=== PATIENT | male | born 1950 | race Caucasian/White ===

== ENCOUNTER 2017-10-25 12:15 | Inpatient (IN) ==
--- NOTE | 2017-10-25 12:59 | Emergency Department Note ---
General Adult HPI - General Chief complaint: Cold/Flu Symptoms Stated complaint: cough, congestion ill 2 months Time Seen by Provider: 10/25/17 12:30 Source: patient Mode of arrival: ambulatory Limitations: no limitations - History of Present Illness HPI Narrative: 67-year-old male seen on 10/03/17 for a small infiltrate in the right lower lobe. Was treated with Levaquin. He states since that time he has had diarrhea and yesterday he became dizzy while using the bathroom in the middle the night. And he did fall. He has some superficial abrasions on his right arm swelling in his nasal bridge. He states he does not want to have this evaluated he states there is no pain is mostly concerned that he does continue to have cough with some yellowish greenish sputum and the diarrhea which is been daily for the past 3 weeks. Once a day. There is been no blood in the stools. She is afebrile - Related Data Home Medications Medication Instructions Recorded Confirmed Atenolol [Tenormin] 10 mg PO DAILY 11/27/15 10/03/17 Losartan Potassium [Cozaar] 100 mg PO DAILY 11/27/15 10/03/17 Spironolactone [Aldactone] 25 mg PO DAILY 11/27/15 10/03/17 Previous Rx's Medication Instructions Recorded Albuterol Sulfate [Proair Hfa] 1 - 2 puff IH Q4-6HP PRN #1 10/03/17 [email or web address] Allergies Allergy/AdvReac Type Severity Reaction Status Date / Time Penicillins Allergy Intermediate Anaphylaxis Verified 10/03/17 09:15 Streptomycin Allergy Intermediate Unknown Verified 10/03/17 09:15 Review of Systems All systems ED: reviewed and negative except as stated. ENT ED: Reports: other (Has contusion on bridge of nose patient does not want this evaluated) Respiratory: Reports: cough, phlegm (Yellowish greenish). Denies: shortness of breath, wheezes Gastrointestinal: Reports: as per HPI, diarrhea. Denies: abdominal pain, nausea , vomiting, constipation Genitourinary: Denies: dysuria, frequency, urgency Past Medical History - Past Medical History Medical history: Reports: hypertension Surgical history ED: Reports: non-contributory Family history: Reports: non-contributory - Social History smoking status: Never smoker Alcohol use: Reports: None Drug use: Reports: none Physical Exam Limitations: no limitations General appearance: alert Head: atraumatic, normocephalic Eye: Present: normal appearance, PERRL ENT: normal exam, normal oropharynx, mucous membranes moist Neck: Present: normal inspection, full ROM. Absent: trachea midline Chest: Present: normal inspection. Absent: symmetric chest wall rise, tenderness Respiratory: Present: normal lung sounds bilaterally. Absent: respiratory distress, wheezes Cardiovascular: Present: regular rate, normal rhythm. Absent: bradycardia, tachycardia Abdominal: Present: soft. Absent: distention, tenderness Extremities: Present: normal inspection, other (Contusion right forearm from falling denies any pain does not want any workup on his lesions) Back: Present: normal inspection, full ROM. Absent: tenderness, CVA tenderness (R), CVA tenderness (L) Course Vital Signs Temperature 98.0 F 10/25/17 12:16 Pulse Rate 114 H 10/25/17 12:16 Respiratory Rate 20 10/25/17 12:16 Blood Pressure 145/84 10/25/17 12:16 Pulse Oximetry (%) 98 10/25/17 12:16 Temperature 98.8 F 10/25/17 15:00 Pulse Rate 97 H 10/25/17 15:00 Respiratory Rate 22 10/25/17 15:00 Blood Pressure 138/71 10/25/17 15:00 Pulse Oximetry (%) 99 10/25/17 15:00 Medical Decision Making - [facility] Narrative Medical decision making narrative: Lactic acid is 1.7. The white count is elevated at 12,600 with 3 bands 83 segs. Chest x-ray shows increasing infiltrate on the right. He had an outpatient trial of Levaquin which apparently has failed and patient to be admitted to hospice has been contacted and will evaluate the patient for admission. - Lab Data Result diagrams: 10/25/17 13:13 10/25/17 13:13 Lab Results 10/25/17 10/25/17 10/25/17 Range/Units 13:13 13:13 14:18 WBC 12.6 H (4.5-11.0) K/mcL RBC 3.84 L (4.50-5.90) M/mcL Hgb 13.2 L (13.5-16.5) g/dL Hct 37.8 L (41.0-55.0) % MCV 98.4 (80.0-100.0) fL MCH 34.4 H (26.0-34.0) pg MCHC 35.0 (31.0-36.0) g/dL RDW 12.1 (11.5-14.5) % Plt Count 214 (140-440) K/mcL MPV 8.6 (7.4-10.4) fL Total Counted 100 Seg Neutrophils % 83 H (38-78) % Band Neutrophils % 3 (0-10) % Lymphocytes % 6 L (15-49) % Monocytes % (Manual) 8 (1-12) % Platelet Estimate Normal (NORMAL) RBC Morphology Normal (NORMAL) VBG Lactic Acid 1.7 (0.5-2.2) mmol/L Sodium 118 L* (133-145) mmol/L Potassium 4.1 (3.3-5.1) mmol/L Chloride 78 L (96-108) mmol/L Carbon Dioxide 18 L (22-30) mmol/L Anion Gap 22.0 H (8-16) BUN 12 (8-23) mg/dl Creatinine 1.0 (0.7-1.2) mg/dl GFR Calculation 77 Glucose 146 H (70-105) mg/dL Calcium 8.3 L (8.6-10.4) mg/dl Total Bilirubin 0.6 (0.0-1.0) mg/dL AST 44 H (0-37) U/l ALT 26 (0-40) U/l Alkaline Phosphatase 59 (39-117) U/L Total Protein 6.9 (5.9-8.4) gm/dL Albumin 3.9 (3.2-5.2) gm/dL Globulin 3.0 (2.2-3.7) gm/dL Albumin/Globulin Ratio 1.3 (1.0-2.3) Disposition Pt seen by ORAL SURGERY ASSISTANT/PA only: No Clinical Impression: Pneumonia involving right lung Qualifiers: Pneumonia type: due to unspecified organism Disposition: Xfer As Inpt ([facility]) Condition: Fair Referrals: Beulah Shankar [Primary Care Provider] -
[2017-10-25] MEDS ORDERED: 0.9 % SODIUM CHLORIDE 1,000 ML IV ONE (13:08)
[2017-10-25 13:38] LABS: Mean Cell Volume 98.4 fL (80.0-100.0); Mean Corpuscular Hemoglobin 34.4 pg (26.0-34.0); Platelet Count 214 K/mcL (140-440); RBC 3.84 M/mcL (4.50-5.90); Red Cell Distribution Width 12.1 % (11.5-14.5)
[2017-10-25 13:57] LABS: ALT/SGPT 26 U/l (0-40); Albumin 3.9 gm/dL (3.2-5.2); Albumin/Globulin Ratio 1.3 (1.0-2.3); Alkaline Phosphatase 59 U/L (39-117); Blood Urea Nitrogen 12 mg/dl (8-23)
[2017-10-25 14:10] LABS: Band Neutrophils % 3 % (0-10); Lymphocytes % 6 % (15-49); Monocytes % (Manual) 8 % (1-12); Platelet Estimate NORMAL (NORMAL); RBC Morphology NORMAL (NORMAL); Segmented Neutrophils % 83 % (38-78)
--- NOTE | 2017-10-25 14:14 | XRay Report ---
CLINICAL INFORMATION: Cough - follow right lower lobe pneumonia COMPARISON: 10/03/2017 FINDINGS: The heart is mildly enlarged. Mediastinum is unremarkable. Pulmonary vessels are now mildly distended compared with the prior and a 2010 baseline chest x-ray. Right lower lobe infiltrate has worsened now moderate sized. There is mild airspace disease developing in the left mid/lower lung either edema or a second infiltrate. Small bilateral pleural effusions noted IMPRESSION: 1. Mild CHF or volume overload - new 2. Moderate right lower lobe infiltrate - worsening 3. Small vague airspace disease left mid/ lower lung is most likely a secondary infiltrate. Consider aspiration Interpreted and Authenticated by: Viktor Lofton 10/25/17
[2017-10-25] MEDS ORDERED: AZITHROMYCIN 500 MG in DEXTROSE 5% IN WATER 250 ML IV ONE (14:21)
[2017-10-25] MEDS ORDERED: cefTRIAXone 1 GM VIAL IV SCH (14:30)
[2017-10-25] MEDS ORDERED: ACETAMINOPHEN 325 MG TABLET PO PRN ×2 (16:21→18:04)
[2017-10-25] MEDS ORDERED: cefTRIAXone 2 GM in DEXTROSE 5% IN WATER 50 ML IV SCH (16:30)
[2017-10-25] MEDS ORDERED: 0.9 % SODIUM CHLORIDE 1,000 ML BAG IV SCH (16:45)
[2017-10-25] MEDS ORDERED: 0.9 % SODIUM CHLORIDE 1,000 ML IV SCH (17:00)
[2017-10-25] MEDS ORDERED: ALBUTEROL SULFATE 1 PUFF INHALER IH PRN (18:04)
[2017-10-25] MEDS ORDERED: 0.45 % SODIUM CHLORIDE 1,000 ML IV SCH (18:04)
[2017-10-25 18:53] LABS: Blood Urea Nitrogen 11 mg/dl (8-23)
[2017-10-25] MEDS: 0.9 % SODIUM CHLORIDE 1,000 ML IV SCH (19:18)
[2017-10-25] MEDS ORDERED: guaiFENesin/CODEINE 10 ML UDC PO PRN (20:35)
[2017-10-25] MEDS: 0.9 % SODIUM CHLORIDE 10 ML SYRINGE IV SCH (21:10)
[2017-10-25] MEDS: LOSARTAN 50 MG TABLET PO SCH (21:27)
--- NOTE | 2017-10-25 21:37 | Internal Med History&Physical ---
Medical - H&P: [facility] Patient information: Note initiated : 10/25/17 at 9:23 pm Service Date, if different from initiated Date: [] Patient: Seun Mesa 67 y/o M presented on 10/25/17 with chief complaint of cough, congestion and feeling ill for 2 months History of present illness: Mr. Mesa is a 67 year old M, with known history of HTN, was in good health up to two months ago. He developed flu like symptoms 2 months ago and has been feeling ill since then. He admits to a cough, mildly productive of mucoid light greenish secretions, subjective fever, poor appetite and lightheadedness. He was seen in the ED on 10/03, diagnosed with a small RLL pneumonia and started on Levofloxacin for ten days. He finished the course as instructed and symptoms have initially improved, but for last few days have developed more coughing, keeping him awake at night. Yesterday, he fell of the commode as he fell asleep in sitting position. He hit his face against the floor and sustained a laceration. He has had some diarrhea last night, not today. Patient hasn't had the flu vaccine this year. His has had flu-like symptoms too, but in milder form. - Constitutional Constitutional: Present: anorexia, fatigue, malaise, weight loss - Cardiovascular Cardiovascular: Absent: chest pain, edema, leg edema - Respiratory Respiratory: Present: cough, dyspnea, chest congestion - Gastrointestinal Gastrointestinal: Present: diarrhea. Absent: abdominal pain - Genitourinary Genitourinary: Absent: difficulty urinating, urinary frequency, urinary hesitancy Medical - H&P: H Medical history: HTN Surgical history: Knee surgery at age 16 Functional capacity: independent ambulation Smoking status: Never smoker Drug use: none Medical - H&P: Meds Home Medications Medication Instructions Recorded Confirmed Type Atenolol [Tenormin] 10 mg PO 0 11/27/15 10/25/17 History Losartan Potassium [Cozaar] 100 mg PO 169911/27/15 10/25/17 History Spironolactone [Aldactone] 25 mg PO 0 11/27/15 10/25/17 History Albuterol Sulfate [Proair Hfa] 1 - 2 puff IH Q4-6HP PRN #1 10/03/17 10/25/17 Rx [email or web address] Allergies Allergy/AdvReac Type Severity Reaction Status Date / Time Penicillins Allergy Severe Anaphylaxis Verified 10/25/17 16:52 Streptomycin Allergy Unknown Unknown Verified 10/25/17 17:01 Medical - H&P: Exam - Constitutional Vitals: Temp Pulse Resp BP Pulse Ox 99.0 F H 95 H 12 132/75 99 10/25/17 18:55 10/25/17 18:55 10/25/17 18:55 10/25/17 18:55 10/25/17 18:55 General appearance: average body habitus - Head Head exam: Present: normal inspection - Expanded Head Exam Head exam: Present: abrasion (nasal bridge) - Eye Eye exam: Present: EOMI, PERRL - Neck Neck exam: Present: normal inspection - Respiratory Respiratory exam: Present: rhonchi. Absent: accessory muscle use - Cardiovascular Cardiovascular exam: Present: normal rate and rhythm - GI/Abdominal GI/Abdominal exam: Present: normal bowel sounds, soft - Rectal Rectal exam: Present: deferred - Extremities Exam Extremities exam: Present: normal inspection - Neurological Exam Neurological exam: Present: CN II-XII intact Medical - H&P: Reslt - Labs CBC & Chem 7: 10/25/17 13:13 10/25/17 17:05 Labs: Short CBC 10/25/17 Range/Units 13:13 WBC 12.6 H (4.5-11.0) K/mcL Hgb 13.2 L (13.5-16.5) g/dL Hct 37.8 L (41.0-55.0) % Plt Count 214 (140-440) K/mcL BMP 10/25/17 10/25/17 13:13 17:05 Sodium 118 L* 119 L* Potassium 4.1 4.0 Chloride 78 L 82 L Carbon Dioxide 18 L 19 L BUN 12 11 Creatinine 1.0 0.8 Glucose 146 H 116 H Calcium 8.3 L 7.8 L Liver Function 10/25/17 Range/Units 13:13 Total Bilirubin 0.6 (0.0-1.0) mg/dL AST 44 H (0-37) U/l ALT 26 (0-40) U/l Alkaline Phosphatase 59 (39-117) U/L Albumin 3.9 (3.2-5.2) gm/dL - ABG Interpretation Interpretation: respiratory alkalosis, metabolic acidosis - Imaging and Cardiology Chest x-ray Additional comments: Procedure(s): XR chest 2V Accession Number(s): [id number] CLINICAL INFORMATION: Cough - follow right lower lobe pneumonia COMPARISON: 10/03/2017 FINDINGS: The heart is mildly enlarged. Mediastinum is unremarkable. Pulmonary vessels are now mildly distended compared with the prior and a 2009 baseline chest x-ray. Right lower lobe infiltrate has worsened now moderate sized. There is mild airspace disease developing in the left mid/lower lung either edema or a second infiltrate. Small bilateral pleural effusions noted IMPRESSION: 1. Mild CHF or volume overload - new 2. Moderate right lower lobe infiltrate - worsening 3. Small vague airspace disease left mid/ lower lung is most likely a secondary infiltrate. Consider aspiration Medical - H&P: A/P - Narrative A/P Narrative: 67-year-old male, presented 10/25 with the following problems: + RLL pneumonia s/p treatment with Levofloxacin x 10 days DD viral pneumonia, MRSA + CHF on CXR. 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 Medical - H&P: Qual - VTE Deep Vein Thrombosis/Pulmonary Embolism Present on Admission: No
[2017-10-25] MEDS ORDERED: 0.9 % SODIUM CHLORIDE 10 ML SYRINGE IV SCH (22:00)
[2017-10-25 22:58] LABS: Albumin 3.3 gm/dL (3.2-5.2); Blood Urea Nitrogen 10 mg/dl (8-23)
[2017-10-26] MEDS: 0.9 % SODIUM CHLORIDE 1,000 ML IV SCH ×2 (02:24→10:09)
[2017-10-26] MEDS: 0.9 % SODIUM CHLORIDE 10 ML SYRINGE IV SCH ×4 (05:04→23:25)
[2017-10-26] MEDS ORDERED: AZITHROMYCIN 250 MG TABLET PO SCH (09:00)
[2017-10-26] MEDS ORDERED: cefTRIAXone 2 GM VIAL IV SCH (09:00)
[2017-10-26] MEDS ORDERED: ENOXAPARIN 40 MG/0.4 ML SYRINGE SQ SCH (09:00)
[2017-10-26] MEDS: ENOXAPARIN 40 MG/0.4 ML SYRINGE SQ SCH (09:37)
[2017-10-26] MEDS: AZITHROMYCIN 250 MG TABLET PO SCH (09:37)
[2017-10-26] MEDS: cefTRIAXone 2 GM VIAL IV SCH (10:07)
--- NOTE | 2017-10-26 11:37 | Internal Med History&Physical ---
Medical - H&P: HPI Patient information: Note initiated : 10/26/17 at 11:33 am Service Date, if different from initiated Date: [] Patient: Seun Mesa 67 y/o M admitted on 10/25/17 for Cough, Congestion Ill x 2 months/Pneumonia. Chief complaint: cough and general malaise History of present illness: Mr. Mesa is a 67 year old M, with known history of HTN, was in good health up to two months ago. He developed flu like symptoms 2 months ago and has been feeling ill since then. He admits to a cough, mildly productive of mucoid light greenish secretions, subjective fever, poor appetite and lightheadedness. He was seen in the ED on 10/03, diagnosed with a small RLL pneumonia and started on Levofloxacin for ten days. He finished the course as instructed and symptoms have initially improved, but for last few days have developed more coughing, keeping him awake at night. Yesterday, he fell of the commode as he fell asleep in sitting position. He hit his face against the floor and sustained a laceration. He has had some diarrhea the night prior. 10/25 Admitted to medical floor with: LLL pneumonia Possible mild CHF (on CXR) Hyponatremia of 118 HTN, well controlled Was empirically started on Ceftriaxone and Azithromycin Gentle NS hydration Aldactone home med on hold Na up to 120 last night 10/26. Feeling better. Sputum : few gram pos cocci ECHO done. Plan: D/c IV, start PT - Constitutional Additional comments: Still easily fatigued, but feeling better. Cough also improved Medical - H&P: Meds Home Medications Medication Instructions Recorded Confirmed Type Atenolol [Tenormin] 10 mg PO 1700 11/27/15 10/25/17 History Losartan Potassium [Cozaar] 100 mg PO 1700 11/27/15 10/25/17 History Spironolactone [Aldactone] 25 mg PO 1700 11/27/15 10/25/17 History Albuterol Sulfate [Proair Hfa] 1 - 2 puff IH Q4-6HP PRN #1 10/03/17 10/25/17 Rx [email or web address] Allergies Allergy/AdvReac Type Severity Reaction Status Date / Time Penicillins Allergy Severe Anaphylaxis Verified 10/25/17 16:52 Streptomycin Allergy Unknown Unknown Verified 10/25/17 17:01 Medical - H&P: Exam - Constitutional Vitals: Temp Pulse Resp BP Pulse Ox 98.1 F 86 16 101/65 100 10/26/17 07:24 10/26/17 04:00 10/26/17 07:24 10/26/17 07:24 10/26/17 07:24 General appearance: average body habitus - Head Head exam: Present: normal inspection - Neck Neck exam: Present: normal inspection - Respiratory Respiratory exam: Present: rhonchi. Absent: accessory muscle use - Cardiovascular Cardiovascular exam: Present: normal rate and rhythm - GI/Abdominal GI/Abdominal exam: Present: normal bowel sounds, soft - Rectal Rectal exam: Present: deferred - Extremities Exam Extremities exam: Present: normal inspection. Absent: pedal edema Medical - H&P: Reslt - Labs CBC & Chem 7: 10/25/17 13:13 10/25/17 21:57 Labs: Short CBC 10/25/17 Range/Units 13:13 WBC 12.6 H (4.5-11.0) K/mcL Hgb 13.2 L (13.5-16.5) g/dL Hct 37.8 L (41.0-55.0) % Plt Count 214 (140-440) K/mcL BMP 10/25/17 10/25/17 10/25/17 13:13 17:05 21:57 Sodium 118 L* 119 L* 120 L Potassium 4.1 4.0 3.7 Chloride 78 L 82 L 83 L Carbon Dioxide 18 L 19 L 17 L BUN 12 11 10 Creatinine 1.0 0.8 0.7 Glucose 146 H 116 H 104 Calcium 8.3 L 7.8 L 7.5 L Liver Function 10/25/17 10/25/17 Range/Units 13:13 21:57 Total Bilirubin 0.6 (0.0-1.0) mg/dL AST 44 H (0-37) U/l ALT 26 (0-40) U/l Alkaline Phosphatase 59 (39-117) U/L Albumin 3.9 3.3 (3.2-5.2) gm/dL Medical - H&P: A/P - Narrative A/P Narrative: 67-year-old male, presented 10/25 with the following problems: + RLL pneumonia s/p treatment with Levofloxacin x 10 days DD viral pneumonia, MRSA On Ceftriaxone and Azithromycin. Started 10/25 Sputum gram stain: gram pos cocci + CHF on CXR. Check echocardiogram to eval for diastolic vs systolic dysfunc + Hyponatremia Discontinue aldactone Gentle IV hydration with NS 10/26: d/c IVF + HTN Continue home meds, except for Aldactone DVT prophylaxis: Lovenox Code status: Full Medical - H&P: Qual - VTE Deep Vein Thrombosis/Pulmonary Embolism Present on Admission: No
[2017-10-26] MEDS ORDERED: cefTRIAXone 1 GM VIAL IV SCH (14:30)
[2017-10-26] MEDS ORDERED: ATENOLOL 50 MG TABLET PO SCH (17:00)
[2017-10-26] MEDS: LOSARTAN 50 MG TABLET PO SCH (17:00)
[2017-10-26] MEDS ORDERED: IPRATROPIUM/ALBUTEROL SULFATE 1 PUFF INHALER INH PRN (19:16)
[2017-10-26] MEDS ORDERED: IPRATROPIUM/ALBUTEROL 3 ML AMPUL.NEB NEB PRN (19:35)
[2017-10-27] MEDS: 0.9 % SODIUM CHLORIDE 10 ML SYRINGE IV SCH (05:36)
[2017-10-27 06:19] LABS: Basophils # (Auto) 0 K/mcL (0.0-0.3); Basophils % (Auto) 0.3 % (0.0-2.0); Eosinophils # (Auto) 0 K/mcL (0.0-0.7); Eosinophils % (Auto) 1.1 % (0.0-7.0); Granulocytes % (Auto) 70.3 % (38.0-78.0); Lymphocytes # (Auto) 0.7 K/mcL (1.5-4.8); Lymphocytes % (Auto) 14.2 % (15.5-49.0); Mean Cell Volume 99.8 fL (80.0-100.0); Mean Corpuscular HGB Conc 34.5 g/dL (31.0-36.0); Mean Corpuscular Hemoglobin 34.4 pg (26.0-34.0); Monocytes # (Auto) 0.7 K/mcL (0.1-0.9); Monocytes % (Auto) 14.1 % (1.0-12.0); Platelet Count 151 K/mcL (140-440); RBC 3.16 M/mcL (4.50-5.90); Red Cell Distribution Width 12.3 % (11.5-14.5)
[2017-10-27 06:42] LABS: Albumin 3.1 gm/dL (3.2-5.2); Blood Urea Nitrogen 6 mg/dl (8-23)
[2017-10-27] MEDS: AZITHROMYCIN 250 MG TABLET PO SCH (08:49)
[2017-10-27] MEDS: ENOXAPARIN 40 MG/0.4 ML SYRINGE SQ SCH (08:49)
[2017-10-27] MEDS: cefTRIAXone 2 GM VIAL IV SCH (09:59)
--- NOTE | 2017-10-27 11:05 | Discharge Summary ---
Medical - DS: Prov Patient information: Note initiated : 10/27/17 at 10:58 am Service Date, if different from initiated Date: [] Patient: Seun Mesa 67 y/o M admitted on 10/25/17 for Cough, Congestion Ill x 2 months/Pneumonia. Date of admission: 10/25/17 16:39 Discharge date: 10/27/17 Primary care physician: Beulah Shankar Medical - DS: Meds - Discharge Medications Prescriptions: Azithromycin [Zithromax] 500 mg PO DAILY #3 tab Cefuroxime [Ceftin] 500 mg PO BID #14 tab Active and Home Medications: Home Medications Atenolol [Tenormin] 25 mg PO DAILY@1700 11/27/15 [History Confirmed 10/26/17 Last Taken 1 Day Ago ~10/24/17] Losartan Potassium [Cozaar] 100 mg PO 1700 11/27/15 [History Confirmed 10/25/17 Last Taken 1 Day Ago ~10/24/17] Spironolactone [Aldactone] 25 mg PO 1700 11/27/15 [History Confirmed 10/25/17 Last Taken 1 Day Ago ~10/24/17] Albuterol Sulfate [Proair Hfa] 1 - 2 puff IH Q4-6HP PRN #1 [email or web address] 10/03/17 [ Rx Confirmed 10/25/17 Last Taken 1 Day Ago ~10/24/17] Medical - DS: Hosp Hospital course: Chief complaint: cough and general malaise History of present illness: Mr. Mesa is a 67 year old M, with known history of HTN, was in good health up to two months ago. He developed flu like symptoms 2 months ago and has been feeling ill since then. He admits to a cough, mildly productive of mucoid light greenish secretions, subjective fever, poor appetite and lightheadedness. He was seen in the ED on 10/03, diagnosed with a small RLL pneumonia and started on Levofloxacin for ten days. He finished the course as instructed and symptoms have initially improved, but for last few days have developed more coughing, keeping him awake at night. Yesterday, he fell of the commode as he fell asleep in sitting position. He hit his face against the floor and sustained a laceration. He has had some diarrhea the night prior. 10/25 Admitted to medical floor with: LLL pneumonia Possible mild CHF (on CXR) Hyponatremia of 118 HTN, well controlled Was empirically started on Ceftriaxone and Azithromycin Gentle NS hydration Aldactone home med on hold Na up to 120 last night 10/26. Feeling better. Sputum : few gram pos cocci ECHO done. Plan: D/c IV, start PT 10/27: Patient feeling well. Ambulated in hallway wo problems. Na: 126 D/C this am Discharge diagnosis: RLL pneumonia, hyponatremia Secondary discharge diagnosis: HTN Reason for admission: Pneumonia, hyponatremia Pertinent studies/significant findings: ECHOCARDIOGRAM: LVEF 58%, mild concentric LVH Complications: None - Time Spent with Patient Total time spent providing and/or coordinating discharge services: Less than 30 minutes Medical - DS: Exam - Constitutional Vitals: Vital Signs Temp Pulse Resp BP Pulse Ox 10/27/17 08:18 83 16 10/27/17 06:40 97.8 F 83 16 144/80 98 10/27/17 04:00 98.5 F 85 16 152/86 98 10/26/17 20:00 98.2 F 95 H 16 142/79 100 10/26/17 15:53 97.2 F 16 131/73 100 10/26/17 12:00 98.4 F 16 133/77 99 Intake and Output 10/26/17 10/27/17 10/27/17 21:59 05:59 13:59 Intake Total 650 / 650 Balance 650 / 650 Intake: Oral 650 / 650 Other: Meal Breakfast Percent of Meal Consumed 75% Feeding Ability Independent # Voids 1 1 Weight 228 lb 8 oz General appearance: no acute distress - Respiratory Respiratory exam: Present: normal respiratory exam - Cardiovascular Cardiovascular exam: Present: normal rate and rhythm - Extremities Exam Extremities exam: Present: normal inspection Medical - DS: Data Labs on day of discharge: Labs from last 24 hours 10/27/17 10/27/17 04:28 04:28 WBC 4.6 RBC 3.16 L Hgb 10.9 L Hct 31.6 L MCV 99.8 MCH 34.4 H MCHC 34.5 RDW 12.3 Plt Count 151 MPV 8.5 Gran % 70.3 Lymph % (Auto) 14.2 L Ness % (Auto) 14.1 H Eos % (Auto) 1.1 Baso % (Auto) 0.3 Gran # 3.3 Lymph # (Auto) 0.7 L Ness # (Auto) 0.7 Eos # (Auto) 0 Baso # (Auto) 0 Sodium 126 L Potassium 3.6 Chloride 91 L Carbon Dioxide 20 L Anion Gap 15.0 BUN 6 L Creatinine 0.6 L GFR Calculation 103 Glucose 105 Calcium 7.8 L Phosphorus 3.6 Albumin 3.1 L Preliminary micro results at discharge 10/25/17 14:13 Blood Culture - Preliminary Blood 10/25/17 14:18 Blood Culture - Preliminary Blood 10/25/17 18:13 Stool Culture - Preliminary Stool Medical - DS: A/P - Patient/Caregiver Discharge Instructions Activity: increase activity as tolerated, resume usual activities as tolerated Diet: Cardiac Additional Instructions: Follow-up with primary care provider in about one month for BP check and renal function panel. - Follow up Plan Follow up with: Beulah Shankar [Primary Care Provider] - Disposition: Home, Self-Care Prognosis: Good Rehab Potential: Good Overall status at discharge: patient is progressing back to baseline Medical - DS: Qual - VTE Deep Vein Thrombosis/Pulmonary Embolism Present on Admission: No
== END 2017-10-27 11:50 | disposition home or self-care (01) | DRG 194 ==
LOC: ED 12:15 → MEDSUR 16:30
PROVIDERS: ADMIT Specialist; ATTEND Specialist